=== PATIENT | female | born 1965 | race African-American/Black ===

== ENCOUNTER 2018-02-12 16:16 | Outpatient (CLI) | payer BC | END 2018-02-12 16:17 | disposition home or self-care (01) | LOC: BICMAMMO 16:16 | PROVIDERS: ATTEND Family Medicine | DX: Z12.31 Encounter for screening mammogram for malignant neoplasm of breast (principal); Z80.3 Family history of malignant neoplasm of breast | CPT/HCPCS: 77063; 77067 ==

== ENCOUNTER 2019-05-18 13:24 | Outpatient (CLI) | payer BC ==
--- NOTE | 2019-05-18 14:49 | MMO ---
Bilateral MAMMO Bilat Diag [facility]+BIRDIE. CLINICAL HISTORY: Patient is 54 years old and is seen for diagnostic exam. The patient has no personal history of cancer. The patient has a history of left Excisional Biopsy in 1990 - Benign. VIEWS: The views performed were: bilateral craniocaudal with tomosynthesis; bilateral mediolateral oblique with tomosynthesis; bilateral mediolateral with tomosynthesis; and bilateral exaggerated craniocaudal. FILMS COMPARED: The present examination has been compared to prior imaging studies performed at [facility] on 01/22/2016, 02/04/2017, 02/12/2018 and 05/18/2019. MAMMOGRAM FINDINGS: The breasts are heterogeneously dense, which could obscure a lesion on mammography. Finding 1: There is a new lobular mass measuring 15 millimeters with indistinct margins seen in the anterior region of the right breast at 12 o'clock. Mass corresponds to the palpable abnormality. Finding 2: There is a round mass seen in the anterior region of the right breast at 3 o'clock. The mass was shown to be a cyst on ultrasound. In the left breast, there are no suspicious masses, calcifications or areas of architectural distortion. IMPRESSION: FINDING 1: NEW MASS IN THE ANTERIOR REGION OF THE RIGHT BREAST AT 12 O'CLOCK IS SUSPICIOUS. AN ULTRASOUND-GUIDED BREAST BIOPSY IS RECOMMENDED. FINDING 2: MASS IN THE ANTERIOR REGION OF THE RIGHT BREAST AT 3 O'CLOCK IS BENIGN. THE FINDINGS AND RECOMMENDATIONS WERE DISCUSSED WITH THE PATIENT PRIOR TO HER LEAVING THE CENTER. THE RESULTS OF THIS EXAM WERE SENT TO THE PATIENT. ACR BI-RADS Category 4 - Suspicious abnormality - biopsy should be considered MAMMOGRAPHY NOTE: 1. A negative mammogram report should not delay a biopsy if a dominant of clinically suspicious mass is present. 2. Approximately 10% to 15% of breast cancers are not detected by mammography. 3. Adenosis and dense breasts may obscure an underlying neoplasm. Reported by: DANNY BARR MD Electonically Signed: [id number]
--- NOTE | 2019-05-18 14:53 | ULT ---
RIGHT BREAST DIAGNOSTIC ULTRASOUND: 05/18/19 INDICATION: Palpable abnormality with unilateral right breast bloody discharge; the bloody discharge was elicited during the mammographic evaluation. COMPARISON: Diagnostic mammogram dated 05/18/19. FINDINGS: Within the right breast 3 o'clock position, 2 cm from the nipple, there is an 8 mm cyst corresponding to the mammographic abnormality. Corresponding to the palpable abnormality and the retroareolar mass identified on the diagnostic mamm ogram is a lobulated mass within the right breast 12 o'clock position, 1 cm from the nipple measuring approximately 1.5 x 1.2 cm. IMPRESSION: BI-RADS 4: Suspicious Abnormality - Biopsy Should Be Considered Usually requires biopsy Recommend ultrasound guided core biopsy. There is a soft tissue mass seen within the palpable region of interest in the right breast 12 o'clock position 1 cm from the nipple that corresponds to a retroa reolar mass seen on the diagnostic mammogram. Findings were discussed with the patient prior to leaving the [facility]. Findings called to Dr. Dorcas cheng's office at 2:42 p.m. on 05/18/19. Code CR POS: OFF
== END 2019-05-18 13:25 | disposition home or self-care (01) ==
LOC: BICMAMMO 13:24
PROVIDERS: ATTEND Obstetrics & Gynecology
DX: N64.4 Mastodynia (principal); N63.12 Unspecified lump in the right breast, upper inner quadrant
CPT/HCPCS: 77066; G0279

== ENCOUNTER → 2019-05-20 | Day surgery (SDC) | payer BC ==
--- NOTE | 2019-05-20 13:25 | MMO ---
Right Breast MAMMO Unilat Diag DDI RT. CLINICAL HISTORY: Patient is 54 years old and is seen for diagnostic exam. The patient has a history of left Excisional Biopsy in 1990 - Benign. VIEWS: The views performed were: . FILMS COMPARED: The present examination has been compared to prior imaging studies performed at [facility] on 02/04/2017, 02/12/2018 and 05/18/2019. MAMMOGRAM FINDINGS: The breast is heterogeneously dense, which could obscure a lesion on mammography. There is a biopsy clip seen in the right breast. IMPRESSION: BIOPSY CLIP IN THE RIGHT BREAST IS CONFIRMED UTILIZING POST PROCEDURE MAMMOGRAM. THE RESULTS OF THIS EXAM WERE SENT TO THE PATIENT. MAMMOGRAPHY NOTE: 1. A negative mammogram report should not delay a biopsy if a dominant of clinically suspicious mass is present. 2. Approximately 10% to 15% of breast cancers are not detected by mammography. 3. Adenosis and dense breasts may obscure an underlying neoplasm. Reported by: BALAJI FARLEY MD Electonically Signed: [id number]
--- NOTE | 2019-05-20 15:08 | ULT ---
ULTRASOUND GUIDED RIGHT BREAST BIOPSY: DATE: 05/20/2019. PROVIDED CLINICAL HISTORY: Breast mass. FINDINGS: Correlation was made with the patient's prior imaging. Informed consent was obtained from the patien t. The skin overlying the right breast lesion was prepped and draped in the usual sterile manner. T he soft tissues were infiltrated with 1% buffered Lidocaine. A small skin incision was made. Under continuous sonographic guidance, a 14-gauge core biopsy device was advanced adjacent to the lesion an d 4 core samples were obtained. Subsequently, continuous sonographic guidance was utilized to deploy a biopsy site marker. The needles were withdrawn and hemostasis achieved. No immediate complicatio ns. Post biopsy mammograms demonstrate appropriate clip deployment. IMPRESSION: Technically successful ultrasound-guided right breast biopsy. Please correlate with pathology result s to follow. POS: OFF
== END ==
LOC: BICULT 12:34
PROVIDERS: ATTEND Obstetrics & Gynecology
PROC: 0HBT3ZX Excision of Right Breast, Percutaneous Approach, Diagnostic (ICD-10-PCS; principal; 2019-05-20)
DX: N63.0 Unspecified lump in unspecified breast (principal)
CPT/HCPCS: 19083; 88305; 88341; 88342

== ENCOUNTER 2019-06-04 11:52 | Outpatient (CLI) | payer BC ==
[2019-06-04 12:36] LABS: #Eosinphils 0.1 thou/uL (0.0-0.7); #Lymphocytes 2.3 thou/uL (1.20-3.40); #Monocytes 0.4 thou/uL (0.11-0.59); #Neutrophils 3.4 thou/uL (1.40-6.50); %Basophils 0.4 % (0.0-1.0); %Eosinophils 0.9 % (0.0-10.0); %Monocytes 5.9 % (0.0-10.0); %Neutrophils 55.7 % (42.0-75.0); Hemoglobin 13.3 g/dL (12.0-16.0); Mean Corpuscular HGB CONC 33.3 g/dL (32.0-36.0); Mean Corpuscular Hemoglobin 30.1 pg (27.0-31.0); Mean Corpuscular Volume 90.3 fL (78.0-98.0); Mean Platelet Volume 7.9 fL (7.4-10.4); Platelet Count 369 thou/uL (130-400); RBC Distribution Width 12.4 % (11.5-14.5); Red Blood Cell (RBC) Count 4.41 mill/uL (4.20-5.40); White Blood Cell (WBC) Count 6.1 thou/uL (4.8-10.8)
[2019-06-04 12:58] LABS: ALT (SGPT) 26 U/L (8-55); AST (SGOT) 23 U/L (5-34); Albumin 4.6 g/dL (3.5-5.0); Alkaline Phosphatase 78 U/L (40-110); Anion Gap 14 mmol/L (10-20); BUN (Urea Nitrogen) 13 mg/dL (9.8-20.1); Bilirubin, Direct 0.2 mg/dL (0.1-0.3); Bilirubin, Total 0.3 mg/dL (0.2-1.2); Calc. Creatinine Clearance 0 mL/min (70-130); Calcium 9.7 mg/dL (7.8-10.44); Carbon Dioxide 24 mmol/L (22-29); Chloride 108 mmol/L (98-107); Estimated GFR-MDRD 79; Globulin 3.2 g/dL (2.4-3.5); Glucose 95 mg/dL (70-105); Potassium 4.3 mmol/L (3.5-5.1); Protein, Total 7.8 g/dL (6.0-8.3); Sodium 142 mmol/L (136-145)
== END 2019-06-04 11:53 | disposition home or self-care (01) ==
LOC: LABBT 11:52
PROVIDERS: ATTEND Surgery
DX: Z01.812 Encounter for preprocedural laboratory examination (principal); D05.11 Intraductal carcinoma in situ of right breast
CPT/HCPCS: 80053; 80076; 85025

== ENCOUNTER 2019-06-07 06:37 | Day surgery (SDC) | payer BC ==
[2019-06-04 12:06] VITALS: BMI 25.0
--- NOTE | 2019-06-07 09:30 | NM ---
EXAM: NM Lymphoscintigraphy right breast PROVIDED CLINICAL HISTORY: Patient with intraductal carcinoma in situ of right breast. COMPARISON: Mammograms on 05/18/2019 and 05/20/2019 as well as ultrasound right breast on 05/18/2019. FINDINGS: The patient was injected intradermally and subcutaneously in the right periareolar location with inje ction of 4 separate aliquots of 373 uCi technetium 99m filtered sulfur colloid in the periareolar region. Immediate anterior and lateral views of the chest were performed. There are 3 separate focal areas of uptake of radiotracer seen. One of the areas of increased uptake is seen within the right axilla with second focal area of uptake seen just superior to the injection site and third area seen superiorly and medially. These findings were discussed with Dr. Martinez at this time. The areas were not marked given multiple sites of uptake seen. IMPRESSION: There are 3 separate focal areas of uptake of radiotracer seen as described above. One of the areas o f uptake is seen in the right axilla, the additional areas of uptake are seen just superior to the injection site as well as superior and medial to the injection site in the more medial upper chest.
--- NOTE | 2019-06-07 10:44 | MMO ---
EXAM: MAMMO Brst Loc Dev Mammo Guide right breast PROVIDED CLINICAL HISTORY: Right breast ductal carcinoma in situ. Biopsy marker clips in place. Wire localization of biopsy marker clip was requested. COMPARISON: Postbiopsy mammograms on 05/20/2019. FINDINGS: After informed consent was obtained, the biopsy marker clip in the right breast was localized in a CC projection. An area was marked and then meticulously prepped and draped in usual sterile fashion. The skin and subcutaneous tissues were infiltrated with buffered 1% lidocaine for local anesthesia. A 7 cm [place] localization needle and wire were advanced. CC and mediolateral projection were obtained. The needle was in good position, and the wire was advanced. Final mediolateral projection w as obtained. Patient tolerated the procedure well and without immediate complication. Dry sterile dressing was placed. Patient was transported to radiology for right breast lymphoscintigraphy prior t o excisional biopsy. IMPRESSION: Technically successful needle and wire localization of right breast biopsy marker clip in the right b reast.
[2019-06-07] MEDS ORDERED: Isosulfan Blue 50 MG/5 ML VIAL ONE (11:10)
[2019-06-07] MEDS ORDERED: Bupivacaine HCl 0.5%/Epinephrine 1:200,000/PF 30 ml Vial ONE (11:10)
[2019-06-07] MEDS ORDERED: Fentanyl 100 MCG/2 ML VIAL ONE ×2 (11:20→13:23)
[2019-06-07] MEDS ORDERED: Lidocaine 2% PF 5 ML VIAL ONE (11:31)
--- NOTE | 2019-06-07 14:02 | MMO ---
SPECIMEN RADIOGRAPH: Date: 06/07/19 A total of 3 images were presented for interpretation. These show the clip to be present on the speci men. IMPRESSION: Clip present on specimen. Findings telephoned to the OR. POS: RADHA
--- NOTE | 2019-06-07 14:03 | OP ---
DATE OF PROCEDURE: 06/07/2019 PREOPERATIVE DIAGNOSIS: Ductal carcinoma in situ, right breast. PROCEDURE PERFORMED: Right needle localization lumpectomy and sentinel lymph node biopsy. INDICATIONS: A 54-year-old female, who had abnormal mammogram, had microcalcifications that were suspicious. She underwent a core needle biopsy that was positive for DCIS. However, the abnormality area was large, so the risk of a possible invasive component was high. FINDINGS: Two sentinel lymph nodes were found. These were sent for permanent section. The area of excision was about 5 cm x 5 cm x 4 cm. This was marked with the needle superior black suture anterior and a blue suture lateral. SPECIMEN: Mammogram did show it contain the biopsy clip in the core. DESCRIPTION OF PROCEDURE: After informed consent was obtained, the patient was taken to the operating room. She underwent general endotracheal anesthesia. She had undergone injection of radionucleotide as well as placement of the localizing wire. Her right breast and axilla were prepped and draped after 3 mL of Lymphazurin infiltrated subareolar and peritumoral. Started with the sentinel node biopsy, the Neoprobe was used, a baseline count of 20 was found. Then, transcutaneous counts of 60 were found. A transverse axillary incision performed down to a blue lymph node with in-vivo counts of 80. This was dissected out. Efferent and afferent lymphatics ligated with 3-0 Vicryl ties and sent as sentinel node 1. We found another area of residual counts of 100. This was found deeper. This was dissected out. Efferent and afferent lymphatics were ligated with 3-0 Vicryl suture. The ex-vivo counts were 120, sent to pathology as sentinel node 2. Residual counts were all pretty much around 20 or less. A circumareolar incision was performed. Subcu divided sharply and the mass was excised sharply around the needle tract to include some normal-palpating breast tissue circumferentially. It was marked with the needle being superior blue stitch, which was lateral and a black stitch anterior. It was sent to mammography, which revealed it did contain the biopsy clip. Hemostasis was achieved with electrocautery. The wounds were thoroughly irrigated with saline. A drain was placed that went from the breast to the axilla and then the axilla to an external site through a separate skin incision. The wounds were thoroughly irrigated. Irrigation fluid removed. Hemostasis was assured. Subcu reapproximated with interrupted 3-0 Vicryl. The skin was closed with interrupted 4-0 Rapide. Steri-Strips applied. Sterile bandage applied. The patient tolerated the procedure well, transferred to Recovery in good condition. Sponge and needle count verified correct x2. Job ID: [id number]
[2019-06-07] MEDS ORDERED: Acetaminophen/Codeine 30-300mg Tablet ONE (14:05)
[2019-06-07] MEDS ORDERED: Lidocaine 1% PF 5 ML VIAL ONE (15:09)
[2019-06-07] MEDS ORDERED: PROPOFOL 200 MG/20 ML VIAL ONE (15:09)
[2019-06-07] MEDS ORDERED: Ketorolac Tromethamine 30 MG/ML VIAL ONE (15:09)
[2019-06-07] MEDS ORDERED: Ondansetron PF 4 MG/2 ML Vial ONE (15:09)
[2019-06-07] MEDS ORDERED: Labetalol HCl 100 MG/20 ML VIAL ONE (15:09)
== END 2019-06-07 14:55 | disposition home or self-care (01) ==
LOC: SDC 06:37
PROVIDERS: ATTEND Surgery
PROC: 07B83ZX Excision of Right Internal Mammary Lymphatic, Percutaneous Approach, Diagnostic (ICD-10-PCS; principal; 2019-06-07)
PROC: 0HBT0ZZ Excision of Right Breast, Open Approach (ICD-10-PCS; principal; 2019-06-07)
DX: D05.11 Intraductal carcinoma in situ of right breast (principal); I10 Essential (primary) hypertension; Z79.899 Other long term (current) drug therapy; Z88.5 Allergy status to narcotic agent
CPT/HCPCS: 19281; 76098; 78195; 88307; 88342; A9541; J0670; J0690; J1885; J2001; J2405; J2704; J3010; Q9968

== ENCOUNTER 2020-12-05 08:50 | Outpatient (CLI) | payer BC | END 2020-12-05 08:51 | disposition home or self-care (01) | LOC: BICMAMMO 08:50 | PROVIDERS: ATTEND Obstetrics & Gynecology | DX: N63.20 Unspecified lump in the left breast, unspecified quadrant (principal); Z80.3 Family history of malignant neoplasm of breast | CPT/HCPCS: 77066; G0279 ==